=== PATIENT | female | born 1995 | race Caucasian/White ===

== ENCOUNTER 2017-11-22 18:23 | Inpatient (IN) | payer BC ==
[~2017-11-22 18:23] MED LIST: CRUTCH1 EACH; IBUPROFEN800 MG PO; NORCO 5-325 TA1 EACH PO
--- NOTE | 2017-11-23 10:16 | PR ---
[facility] [address] [facility] [place], [place] [address] Signed PP Progress Notes Datetime Report Generated by JIMMIE: 11/23/2017 10:16 SUBJECTIVE: [id number] Pain: Within normal limits Vital Signs: [id number] Vital Signs: Reviewed; Within Normal Limits EXAM: [id number] Cardiovascular: Not Done Respiratory: Not Done Abdomen/Uterus: Abnormal Lochia: Normal Vulva/Perineum: Not Done Breasts: Not Done CVA Tenderness: Not Done Extremities: Normal Incision: Not Applicable Progress: Normal Exam Comments: Fundus firm, NT @ U-1. H/H 09/08.2, WBC 12, plat 233k IMPRESSION/PLAN/PROCEDURES: [id number] Impression: Normal progression Plan: Continue present management Procedures: None Progress Notes: Doing well. 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
== END 2017-11-24 11:17 | disposition home or self-care (01) | DRG 775 ==
LOC: FBCO 18:23 → FBC 18:50
PROVIDERS: ADMIT Obstetrics & Gynecology
PROC: 10D07Z6 Extraction of Products of Conception, Vacuum, Via Natural or Artificial Opening (ICD-10-PCS; principal; 2017-11-22)
PROC: 10907ZC Drainage of Amniotic Fluid, Therapeutic from Products of Conception, Via Natural or Artificial Opening (ICD-10-PCS; 2017-11-22)
PROC: 00HU33Z Insertion of Infusion Device into Spinal Canal, Percutaneous Approach (ICD-10-PCS; 2017-11-22)
PROC: 3E0R3BZ Introduction of Anesthetic Agent into Spinal Canal, Percutaneous Approach (ICD-10-PCS; 2017-11-22)
DX: O62.3 Precipitate labor (principal); O76 Abnormality in fetal heart rate and rhythm complicating labor and delivery; O75.89 Other specified complications of labor and delivery; O32.2XX0 Maternal care for transverse and oblique lie, not applicable or unspecified; Z87.891 Personal history of nicotine dependence; Z37.0 Single live birth; Z3A.40 40 weeks gestation of pregnancy
CPT/HCPCS: 01960; 36415; 82803; 85027; J2590

== ENCOUNTER 2020-04-15 18:58 | Emergency (ER) | payer SELFPAY ==
[~2020-04-15] VITALS: Ht 165.1 cm; Wt 66.7 kg
== END 2020-04-15 21:12 | disposition home or self-care (01) ==
LOC: ED 18:58
DX: R40.4 Transient alteration of awareness (principal); T43.625A Adverse effect of amphetamines, initial encounter; F17.200 Nicotine dependence, unspecified, uncomplicated
CPT/HCPCS: 80053; 80176; 81001; 84703; 85025; 99284; G0480

== ENCOUNTER 2021-07-20 05:53 | Emergency (ER) | payer BC ==
[~2021-07-20] VITALS: Ht 165.1 cm; Wt 70.0 kg
[2021-07-20] MEDS ORDERED: FLUOXETINE HCL40 MG PO (06:10)
[2021-07-20] MEDS ORDERED: MEDROXYPRO150 MG/11 IM (06:10)
[2021-07-20] MEDS ORDERED: HYDROCODON-ACE1 EA10 PO (06:40)
[2021-07-20] MEDS ORDERED: CEPHALEXIN500 MG PO (06:40)
== END 2021-07-20 08:01 | disposition home or self-care (01) ==
LOC: ED 05:53
DX: N39.0 Urinary tract infection, site not specified (principal); F17.200 Nicotine dependence, unspecified, uncomplicated; Z79.899 Other long term (current) drug therapy
CPT/HCPCS: 80053; 81001; 84703; 85025; 96374; 96375; 99284-25; J0696; J1885; J2405; J7030

== ENCOUNTER 2021-09-11 10:46 | Emergency (ER) | payer BC ==
[~2021-09-11] VITALS: Ht 165.1 cm; Wt 69.8 kg
[~2021-09-11 10:46] MED LIST changes: +CEPHALEXIN500 MG PO; +FLUOXETINE HCL40 MG PO; +HYDROCODON-ACE1 EA10 PO; +MEDROXYPRO150 MG/11 IM
[2021-09-11] MEDS ORDERED: PREDNISONE20 MG PO (14:14)
[2021-09-11] MEDS ORDERED: HYDROCODON-ACE1 EA10 PO (14:14)
[2021-09-12] MEDS ORDERED: CEPHALEXIN500 MG PO (04:49)
== END 2021-09-11 14:36 | disposition home or self-care (01) ==
LOC: ED 10:46
DX: R07.89 Other chest pain (principal); R09.1 Pleurisy; F17.200 Nicotine dependence, unspecified, uncomplicated; Z79.899 Other long term (current) drug therapy
CPT/HCPCS: 71101; 71260; 80053; 84703; 85025; 85379; 99285-25

== ENCOUNTER 2021-09-12 03:28 | Emergency (ER) | payer BC ==
[~2021-09-12] VITALS: Ht 165.1 cm; Wt 69.8 kg
[~2021-09-12 03:28] MED LIST changes: +PREDNISONE20 MG PO
--- OUTSIDE RECORDS SUMMARY | 2021-09-12 03:30 | XMS ---
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 Rossy has no Care Guidelines for this patient. Beau VISIT COUNT (12 MO.) 3 [facility] TOTAL 3 NOTE: Visits indicate total known visits. ED/C VISIT TRACKING (12 MO.) 09/12/2021 03:[address] [facility] [place] TYPE: Emergency COMPLAINT: - LT SIDE RIB PAIN 09/11/2021 10:46 [facility] [place] TYPE: Emergency COMPLAINT: - L ARM/RIBS PAIN 07/20/2021 05:54 [facility] [place] TYPE: Emergency COMPLAINT: - ABDOMINAL AND HEAD PAIN DIAGNOSES: - Unspecified abdominal pain - Urinary tract infection, site not specified - Other longterm (current) drug therapy - Nicotine dependence, unspecified, uncomplicated INPATIENT VISIT TRACKING (12 MO.) No inpatient visits to display in this time frame [id number]
[2021-09-12] MEDS ORDERED: CEPHALEXIN500 MG PO (04:49)
== END 2021-09-12 05:02 | disposition home or self-care (01) ==
LOC: ED 03:28
DX: R07.89 Other chest pain (principal); F17.200 Nicotine dependence, unspecified, uncomplicated; Z79.52 Long term (current) use of systemic steroids; Z79.899 Other long term (current) drug therapy
CPT/HCPCS: 96372; 99284; J1885

== ENCOUNTER 2021-10-24 20:31 | Emergency (ER) | payer BC ==
[~2021-10-24] VITALS: Ht 165.1 cm; Wt 75.7 kg
--- OUTSIDE RECORDS SUMMARY | 2021-10-24 20:34 | XMS ---
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 Rossy has no Care Guidelines for this patient. Care History Medical/Surgical 09/12/2021 [facility] - [facility] CALLED PATIENT 2X- NO ANSWER- LEFT A VOICEMAIL. PATIENT DOES NOT HAVE A PCP LISTED. - NO PCP LETTER WITH CLINICS LIST SENT TO PATIENT ADDRESS ON FILE. Beau VISIT COUNT (12 MO.) 4 [facility] TOTAL 4 NOTE: Visits indicate total known visits. 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 - Other retirement (current) drug therapy 09/11/2021 10:46 [facility] [place] TYPE: Emergency COMPLAINT: - L ARM/RIBS PAIN DIAGNOSES: - Pleurodynia - Pleurisy - Nicotine dependence, unspecified, uncomplicated - Other chest pain - Other chest pain - Other retirement (current) drug therapy 07/20/2021 05:54 [facility] [place] TYPE: Emergency COMPLAINT: - ABDOMINAL AND HEAD PAIN DIAGNOSES: - Unspecified abdominal pain - Urinary tract infection, site not specified - 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
== END 2021-10-24 22:36 | disposition home or self-care (01) ==
LOC: ED 20:31
DX: S20.221A Contusion of right back wall of thorax, initial encounter (principal); M41.9 Scoliosis, unspecified; B34.9 Viral infection, unspecified; F17.200 Nicotine dependence, unspecified, uncomplicated; R11.2 Nausea with vomiting, unspecified; R19.7 Diarrhea, unspecified; Y04.2XXA Assault by strike against or bumped into by another person, initial encounter
CPT/HCPCS: 71046; 99284-25; A9270

== ENCOUNTER 2022-05-11 03:23 | Emergency (ER) | payer OTHER ==
[~2022-05-11] VITALS: Ht 165.1 cm; Wt 75.7 kg
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
[2022-05-11] MEDS ORDERED: PYRIDIUM100 MG PO (04:07)
[2022-05-11] MEDS ORDERED: MACROBID 100 M100 MG PO (04:07)
== END 2022-05-11 04:18 | disposition home or self-care (01) ==
LOC: ED 03:23
DX: N39.0 Urinary tract infection, site not specified (principal); F17.200 Nicotine dependence, unspecified, uncomplicated
CPT/HCPCS: 81001; 84703; 87088; 99283